=== PATIENT | male | born 1975 | race African-American/Black ===

== ENCOUNTER 2017-02-22 10:19 | Emergency (ER) | payer SELFPAY ==
[~2017-02-22] VITALS: Ht 177.8 cm; Wt 80.0 kg
[2017-02-22 10:41] VITALS: BP 144/80
[2017-02-22] MEDS ORDERED: AZITHROMYCIN 500 MG TABLET PO ONE (10:45)
[2017-02-22] MEDS ORDERED: CEFTRIAXONE SODIUM 250 MG/VIAL IM ONE (10:45)
[2017-02-22] MEDS ORDERED: LIDOCAINE HCL 1% 20ML VIAL (Pyxis) INJ INFIL ONE (10:45)
[2017-02-22 11:11] LABS: CLARITY URINE CLOUDY (CLEAR); COLOR URINE DARK YELLOW (YELLOW); GLUCOSE URINE NEGATIVE (NEGATIVE); KETONES URINE TRACE (NEGATIVE); LEUKOCYTE ESTERASE URINE 1+ (NEGATIVE); NITRITE URINE NEGATIVE (NEGATIVE); OCCULT BLOOD URINE NEGATIVE (NEGATIVE); PROTEIN URINE TRACE (NEGATIVE); SPECIFIC GRAVITY URINE 1.033 (1.005-1.030)
[2017-02-26 13:07] LABS: CHLAMYDIA TRACHOMATIS NAA Negative (Negative); NEISSERIA GONORRHOEAE NAA Negative (Negative)
== END 2017-02-22 13:18 | disposition home or self-care (01) ==
LOC: ER 10:38
DX: N34.2 Other urethritis (principal); R36.9 Urethral discharge, unspecified
CPT/HCPCS: 81001; 87491; 87591; 96372; 99284; J0696; J3490; Z7610; 99283

== ENCOUNTER 2017-06-23 18:49 | Emergency (ER) | payer SELFPAY ==
[~2017-06-23] VITALS: Ht 177.8 cm; Wt 80.0 kg
[2017-06-23] MEDS ORDERED: HYDROCODONE/ACETAMINOPHEN 5/325MG TABLET PO ONE (20:30)
[2017-06-23] MEDS ORDERED: LIDOCAINE HCL 1% 20ML VIAL (Pyxis) INJ INFIL ONE ×3 (20:30→22:15)
[2017-06-23] MEDS ORDERED: POVIDONE-IODINE 10% TOPICAL SOLN 240ML TOP ONE (20:30)
[2017-06-23] MEDS ORDERED: TETANUS, DIPHTHERIA, PERTUSSIS VAC/PF 0.5ML (>7YR OLD) IM ONE (20:30)
[2017-06-23] MEDS ORDERED: BACITRACIN ZINC OINT UDPKT TOP ONE (20:30)
[2017-06-23] MEDS ORDERED: AZITHROMYCIN 500 MG TABLET PO ONE (22:15)
[2017-06-23] MEDS ORDERED: CEFTRIAXONE SODIUM 250 MG/VIAL IM ONE (22:15)
[2017-06-23 22:50] VITALS: BP 134/82
== END 2017-06-23 22:50 | disposition home or self-care (01) ==
LOC: ER 18:49
DX: S41.111A Laceration without foreign body of right upper arm, initial encounter (principal); S41.112A Laceration without foreign body of left upper arm, initial encounter; F12.10 Cannabis abuse, uncomplicated; F17.210 Nicotine dependence, cigarettes, uncomplicated; X99.8XXA Assault by other sharp object, initial encounter; Y93.89 Activity, other specified; Y92.488 Other paved roadways as the place of occurrence of the external cause
CPT/HCPCS: 12002; 90471; 90715; 96372; 99284; A4246; J0696; J3490; X7700; Z7610

== ENCOUNTER 2017-11-06 10:09 | Emergency (ER) | payer SELFPAY ==
[~2017-11-06] VITALS: Ht 172.7 cm; Wt 78.0 kg
[2017-11-06 12:16] LABS: CLARITY URINE CLEAR (CLEAR); COLOR URINE YELLOW (YELLOW); KETONES URINE NEGATIVE (NEGATIVE); LEUKOCYTE ESTERASE URINE TRACE (NEGATIVE); NITRITE URINE NEGATIVE (NEGATIVE); OCCULT BLOOD URINE NEGATIVE (NEGATIVE); PROTEIN URINE NEGATIVE (NEGATIVE); SPECIFIC GRAVITY URINE 1.029 (1.005-1.030); UROBILINOGEN URINE 0.2 E.U./dL (0.2-1.0)
[2017-11-06] MEDS ORDERED: IBUPROFEN 600MG TABLET PO STA (13:01)
[2017-11-06] MEDS ORDERED: CEFTRIAXONE SODIUM 250 MG/VIAL IM ONE (13:15)
[2017-11-06] MEDS ORDERED: AZITHROMYCIN 500 MG TABLET PO ONE (13:15)
[2017-11-06 13:35] VITALS: BP 137/84
== END 2017-11-06 13:50 | disposition home or self-care (01) ==
LOC: ER 10:20
DX: N34.2 Other urethritis (principal)
CPT/HCPCS: 81003; 96372; 99283; J0696; Z7610

== ENCOUNTER 2019-07-05 03:15 | Emergency (ER) | payer SELFPAY ==
[~2019-07-05] VITALS: Ht 177.8 cm; Wt 82.0 kg
[2019-07-05] MEDS ORDERED: KETOROLAC 30MG/ML VIAL IM ONE (04:15)
[2019-07-05 10:00] VITALS: BP 126/82
== END 2019-07-05 10:05 | disposition home or self-care (01) ==
LOC: ER 03:15
DX: M25.561 Pain in right knee (principal); Z91.81 History of falling; Z59.0 Homelessness
CPT/HCPCS: 73562; 96372; 99283; J1885; L1830

== ENCOUNTER 2020-05-09 12:17 | Emergency (ER) | payer MEDICAID ==
[~2020-05-09] VITALS: Ht 167.6 cm; Wt 80.0 kg
[2020-05-09] MEDS ORDERED: IBUPROFEN 600MG TABLET PO ONE (14:00)
[2020-05-09] MEDS ORDERED: BACITRACIN ZINC OINT UDPKT TOP ONE (14:00)
[2020-05-09 15:08] VITALS: BP 124/72
== END 2020-05-09 15:08 | disposition home or self-care (01) ==
LOC: ER 13:18
DX: T23.202A Burn of second degree of left hand, unspecified site, initial encounter (principal); T23.001A Burn of unspecified degree of right hand, unspecified site, initial encounter; T79.9XXA Unspecified early complication of trauma, initial encounter; F17.200 Nicotine dependence, unspecified, uncomplicated
CPT/HCPCS: 99283